=== PATIENT | female | born 1955 | race Caucasian/White ===

== ENCOUNTER 2017-07-13 10:11 | Outpatient (CLI) | payer BC ==
--- NOTE | 2017-07-19 15:52 | MMO ---
BILATERAL SCREENING MAMMOGRAMS: Date: 07/13/17 Comparison made to prior exam from 2016 from an outside institution. This patient's mammogram was interpreted with the assistance of computer-aided detection. FINDINGS: Scattered fibroglandular densities. There are scattered benign-appearing calcifications. There are s cattered asymmetries in both breasts which appear stable. No evidence of interval change. Recommend one year follow-up. IMPRESSION: BIRADS 2: Benign Finding(s) POS: MAN[facility]
--- OUTSIDE RECORDS SUMMARY | 2017-07-23 11:27 | XMS | Continuity of Care Document ---
:1955 Author Organization [facility] Care Team Providers Name Role Phone OlgakalpeshUma Primary Care Physician Insurance Providers Payer Name Policy Number Subscriber Name Relationship [facility] [id number] VITO REYNOSO SELF/SAME PATIENT Advance Directives Directive Response Recorded Date/Time Advance Directive? N 05/29/17 1:51pm Living Will? N 05/29/17 1:51pm Health Care Proxy? N 05/29/17 1:51pm Healthcare Power of Range Manager? N 05/29/17 1:51pm Is the patient an Organ Donor? N 05/29/17 1:51pm Chief Complaint and Reason for Visit Reason for Visit BRONCHITIS AND SWOLLEN TOE Problems Active Medical Problems Problem Onset Date Recorded Date Status URI (upper respiratory infection) Unknown 05/29/17 Active Medications Current Home Medications Medication Dose Units Route Directions Days/Qty Instructions Start Date Aspirin (ASPIRIN 325 MG By Mouth EVERY DAY @ EC 325 MG TAB) 0900 325 MG TAB Atorvastatin 10 MG By Mouth AT BEDTIME Calcium (LIPITOR (2100) 10 MG TAB) 10 MG TAB Azithromycin 2 TAB By Mouth GIVE 5 Days TAKE 2 TABLETS 05/29/17 (Zithromax DIRECTED BY BY MOUTH ON DAY Z-PACK) 250 MG PHYSICIAN 1, THEN TAKE 1 TAB TABLET BY MOUTH DAILYON DAYS 2-5 Biotin (Eql 5,000 MCG By Mouth Biotin) 5,000 MCG CAP Black 1 CAP By Mouth Pepper-Turmeric (Turmeric Curcumin Complex 500-3 MG) 1 CAP CAP Celecoxib 50 MG By Mouth TWICE A DAY (CELEBREX 50 MG (0900; 2100) CAP) 50 MG CAP Coenzyme 1 CAP By Mouth [id number] E (Coq10 St-100 100-100 MG-Unit) 1 CAP CAP ESTRADIOL 1 MG By Mouth EVERY DAY @ (ESTRADIOL 1 MG 0900 TAB) 1 MG TAB Fexofenadine 180 MG By Mouth EVERY DAY @ Hydrochloride 0900 (EVERARDO 180 MG) 180 MG TAB Levothyroxine 75 MCG By Mouth EVERY DAY @ Sodium (SYNTHROID 0900 0.075 MG TAB) 75 MCG TAB PROGESTERONE 100 MG By Mouth AT BEDTIME MICRONIZED (2100) (PROGESTERONE 100 MG CAP) 100 MG CAP Social History Problem Response Recorded Date Recreational drugs? N 05/29/17 Alcohol? N 05/29/17 Query Response Start Date Stop Date Smoking Status: Never Smoker Hospital Discharge Instructions No hospital discharge instructions. Plan of Care Discharge Date 05/29/17 Disposition HOME/SELF CARE Condition at Discharge STABLE Instructions/Education Provided DI for Viral Upper Respiratory Infection -- Adult Forms Provided Discharge Form Prescriptions See Medications Section Referrals Uma Vang - Additional Instructions/Education Return to ER for worsening conditions, or any acute changes. Follow up with primary MD tomorrow for re-evaluation. Functional Status No functional status results. Allergies, Adverse Reactions, Alerts No known allergies. Immunizations No Known History of Immunizations. Vital Signs Vital Reading Collection Date/Time Result Blood Pressure 05/29/17 2:32pm 151/83 Temperature 05/29/17 2:32pm 99.2 F Temperature Source 05/29/17 1:46pm Oral Pulse Rate 05/29/17 2:32pm 83 Bedside Pulse Oximetry 05/29/17 2:32pm 98 Height 05/29/17 1:46pm 5 ft 6 in Height 05/29/17 1:46pm 167.64 cm Weight 05/29/17 1:46pm 170 lb Weight 05/29/17 1:46pm 77.111 kg Body Mass Index 05/29/17 1:46pm 27.4 kg/m2 Results [facility] VITO REYNOSO I-[birth year] [id number] / [id number] [place], [place] [id number] 62 / F Adm: History of Present Illness General Chief Complaint Respiratory (M.ER) Stated Complaint BRONCHITIS AND SWOLLEN TOE Date seen by MD 05/29/17 Time seen by [id number] Source patient History limited by no limitations Reviewed nurses notes, vital signs, home medications, allergies History of Present Illness Initial Comments 2-3 day history of cough and congestion. No F/C, N/V, headache. Gets this about 2-3 times a year. Ears feel full- but no pain. No other sx's. She also c/o a red line below her L great toe nail, that popped up after a pedicure a couple of days ago. Is somewhat better today. Severity/Quality mild, dry cough Prior Episodes/Possible Cause frequent episodes Modifying Factors worse with activity, improves with lying down, improves with rest Associated Symptoms cough, nasal congestion Allergies Coded Allergies: No Known Drug Allergy (05/29/17) Prescriptions Reported Medications Atorvastatin Calcium (LIPITOR 10 MG TAB) 10 MG PO QHS PROGESTERONE MICRONIZED (PROGESTERONE 100 MG CAP) 100 MG PO QHS ESTRADIOL (ESTRADIOL 1 MG TAB) 1 MG PO DAILY Celecoxib (CELEBREX 50 MG CAP) 50 MG PO BID Levothyroxine Sodium (SYNTHROID 0.075 MG TAB) 75 MCG PO DAILY Black Pepper-Turmeric (Turmeric Curcumin Complex 500-3 MG) 1 CAP PO Coenzyme T80-Psrrpmd E (Coq10 St-100 100-100 MG-Unit) 1 CAP PO Aspirin (ASPIRIN EC 325 MG TAB) 325 MG PO DAILY Fexofenadine Hydrochloride (EVERARDO 180 MG) 180 MG PO DAILY Biotin (Eql Biotin) 5,000 MCG PO Review of Systems Constitutional denies see HPI EENTM denies no symptoms reported Respiratory denies cough Cardiovascular denies no symptoms reported Gastrointestinal denies no symptoms reported Genitourinary denies no symptoms reported Musculoskeletal denies no symptoms reported Skin denies no symptoms reported Psychiatric/Neurological denies no symptoms reported Hematologic/Lymphatic denies no symptoms reported Immunological/Allergic denies no symptoms reported All Other Systems Reviewed and Negative Past History History unobtainable due to no limitations Past Medical History Past Medical History Thyroid Disease. Surgical History no recent surgery Family History Significant Family History hx reviewed, not relevant Social History Smoking Status: Never Smoker Drug Use denies Physical Exam Physical Exam General Appearance calm, no apparent distress, well hydrated Eyes bilateral eye normal inspection Ears, Nose, Throat TM dull, pharyngeal erythema Neck normal inspection, appropriate ROM, non-tender, supple Respiratory chest non-tender, lungs clear, normal breath sounds, normal inspection, no respiratory distress, no accessory muscle use, slight exp wheeze Left upper ant lung exam. Cardiovascular regular rate/rhythm, no edema, no JVD, no murmur/rub/gallop Gastrointestinal normal inspection, non-distended Extremities non-tender, normal range of motion, normal inspection, Left Great toe- just beneath the toe nail a red line of erythema running parallel to the nail. No neurosensory deficit, good cap refill, full ROM. Neurologic/Psychiatric alert, appropriate mood/affect, no motor/sensory deficits , oriented x 3 Skin normal color, normal inspection, warm/dry, cyanosis Lymphatic no adenopathy Reviewed and agree with triage nurses notes Progress Vitals Vital Signs Date Time Temp Pulse Resp B/P B/P Pulse O2 O2 Flow FiO2 Mean Ox Delivery Rate 05/29 1346 99.2 83 151/83 98 Lab and Rad Results& Orders Details of Miscellaneous Nursing Order: Departure Departure Time of Disposition 1411 Disposition HOME/SELF CARE Clinical Impression Primary Impression: URI (upper respiratory infection) Qualifiers: URI type: unspecified viral URI Qualified Codes: J06.9 - Acute upper respiratory infection, unspecified; B97.89 - Other viral agents as the cause of diseases classified elsewhere Condition STABLE Patient Instructions DI for Viral Upper Respiratory Infection -- Adult Additional Instructions Return to ER for worsening conditions, or any acute changes. Follow up with primary MD tomorrow for re-evaluation. Prescriptions Current Visit Scripts Azithromycin (Zithromax Z-PACK) 2 TAB PO DIRECTED 5 Days TAKE 2 TABLETS BY MOUTH ON DAY 1, THEN TAKE 1 TABLET BY MOUTH DAILY ON DAYS 2-5 Report created by: MARIANA 05/29/17 1415 Report electronically signed by: EMIR SHEPHERD MD 05/29/17 1415<<Signature on File>> Report cosigned by: Procedures No Known History of Procedures. Encounters Encounter Location Arrival/Admit Date Discharge/Depart Date Attending Provider Departed [place] 05/29/17 1:36pm 05/29/17 2:32pm [facility] EMIR Booker MD Hospital Encounter Diagnosis Onset Date URI (upper respiratory infection)
== END 2017-07-13 10:12 | disposition home or self-care (01) ==
LOC: MAMMO 10:11
PROVIDERS: ATTEND Obstetrics & Gynecology
DX: Z12.31 Encounter for screening mammogram for malignant neoplasm of breast (principal)
CPT/HCPCS: 77067; G0202

== ENCOUNTER 2018-08-28 14:45 | Outpatient (CLI) | payer BC | END 2018-08-28 14:46 | disposition home or self-care (01) | LOC: BICMAMMO 14:45 | PROVIDERS: ATTEND Obstetrics & Gynecology | DX: Z12.31 Encounter for screening mammogram for malignant neoplasm of breast (principal); Z80.3 Family history of malignant neoplasm of breast | CPT/HCPCS: 77063; 77067 ==